=== PATIENT | male | born 1975 | race Caucasian/White ===

== ENCOUNTER 2020-12-14 08:46 | Outpatient (REF) | payer OTHER, SELFPAY ==
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
== END 2020-12-14 08:47 | disposition home or self-care (01) ==
LOC: HO.SH 08:46
PROVIDERS: Visit Provider Internal Medicine
DX: H90.0 Conductive hearing loss, bilateral (principal)
CPT/HCPCS: 92557; 92567